=== PATIENT | female | born 1960 | race Caucasian/White ===

== ENCOUNTER → 2016-10-07 | Outpatient (CLI) | payer BC ==
[~2016-10-07] MED LIST: DICL-201 PO; DTRSR4 PO; LEVO150T9 PO
--- NOTE | 2016-10-07 16:30 | DIAGNOSTIC IMAGING REPORT ---
CERVICAL SPINE 5 VIEWS HISTORY: Pain. Radiculopathy. M54.2 Cervicalgia COMPARISON: None. FINDINGS: The cervical spine is visualized from C1 through the superior endplate of T1. There is no fracture. Slight reversal subluxation C4 on C5 and C3 on C4. Marlin to be degenerative in origin. Moderate degenerative disc change from C4 through T1. Moderate osteophytic narrowing of the neuroforamina bilaterally throughout the bulk of the cervical spine. Prevertebral soft tissues and the atlantodens interval are intact. IMPRESSION: Moderate degenerative change mid to lower cervical region. No acute bony abnormality. Mild/moderate osteophytic narrowing of the bulk of the neuroforamina bilaterally Electronically signed by: Robert Borjas M.D. 10/07/2016 4:28 PM
== END | disposition home or self-care (01) ==
LOC: C.RAD 15:37
PROVIDERS: ATTEND Family Medicine
DX: M54.2 Cervicalgia (principal)

== ENCOUNTER → 2016-12-16 | Outpatient (CLI) | payer BC ==
--- NOTE | 2016-12-16 13:11 | DIAGNOSTIC IMAGING REPORT ---
CERVICAL SPINE MRI HISTORY: M54.2 [id number] Cervical radiculitis [id number] TECHNIQUE: Multiplanar multisequence MRI of the cervical spine was performed without the use of contrast. COMPARISON STUDY: Cervical spine 10/07/2016. FINDINGS: Slight reversal of the normal lordotic curvature. Remains intact. The visualized posterior fossa is unremarkable. The cervical spinal cord is normal in course, caliber, and signal intensity. Nonspecific marrow edema within the anterior arch of C1 and within the odontoid. No definite fractures identified. Prevertebral soft tissues and the C1-C2 interval are intact. Incidental note is made of a few small lateral meningoceles within the lower cervical and upper thoracic spine. The largest at the right T1-T2 neural foramen measures 1 cm. These are of doubtful clinical significance. Moderate disc space narrowing at C4-C5, C5-C6, and C6-C7. C2-C3: No significant central canal or neural foraminal narrowing. C3-C4: No significant central canal or neural foraminal narrowing. Mild left-sided uncovertebral hypertrophy. C4-C5: Small broad-based disc osteophyte complex resulting in partial effacement of the anterior thecal sac without cord deformity. There is mild right-sided neural foraminal narrowing due to the uncovertebral hypertrophy. C5-C6: Small broad-based posterior disc bulge resulting in partial effacement of the anterior thecal sac without cord deformity. There is severe right-sided neural foraminal narrowing due to the uncovertebral hypertrophy. C6-C7: Small right paracentral focal disc protrusion which results in partial effacement of the right anterior thecal sac without cord deformity. There is also severe right-sided neural foraminal narrowing due to the disc protrusion and uncovertebral hypertrophy. C7-T1: No significant central canal or neural foraminal narrowing. IMPRESSION: 1. Severe right-sided neural foraminal narrowing at C5-C6 and C6-C7 as described above. 2. Small broad-based posterior disc bulge at C5-C6 resulting in partial effacement of the anterior thecal sac without cord deformity. 3. Small right paracentral focal disc protrusion at C6-C7 which also results in partial effacement of the right anterior thecal sac without cord deformity. 4. Mild reversal of the normal lordotic curvature. 5. Nonspecific marrow edema within the anterior arch of C1 and the odontoid. However, the C1-C2 interval is intact and there is no significant prevertebral soft tissue swelling. Therefore, this is likely related to long-standing degenerative change. However, if the patient has had recent injury then recommend follow-up CT to exclude the possibility of an occult fracture. No fracture identified on this study. Electronically signed by: Ruben Alcantara M.D. 12/16/2016 1:09 PM Dictated Date/Time: 12/16/2016 12:55 PM
== END | disposition home or self-care (01) ==
LOC: C.MRI 11:39
PROVIDERS: ATTEND Family Medicine
DX: M54.12 Radiculopathy, cervical region (principal); M48.02 Spinal stenosis, cervical region; M50.222 Other cervical disc displacement at C5-C6 level; M50.223 Other cervical disc displacement at C6-C7 level; R60.0 Localized edema

== ENCOUNTER → 2017-04-01 | Outpatient (CLI) | payer BC | END | disposition home or self-care (01) | LOC: C.LABMFLN 13:10 | PROVIDERS: ATTEND Family Medicine | DX: E03.9 Hypothyroidism, unspecified (principal) ==

== ENCOUNTER → 2017-10-05 | Outpatient (CLI) | payer BC | END | disposition home or self-care (01) | LOC: C.LABMFLN 09:50 | PROVIDERS: ATTEND Family Medicine | DX: Z13.220 Encounter for screening for lipoid disorders (principal); Z13.1 Encounter for screening for diabetes mellitus; E03.9 Hypothyroidism, unspecified ==